=== PATIENT | female | born 1995 | race African-American/Black ===

== ENCOUNTER 2024-10-28 21:49 | Emergency (ER) | payer SELFPAY ==
[~2024-10-28] VITALS: Ht 167.6 cm; Wt 91.0 kg
[2024-10-28 21:55] VITALS: O2SAT 99
[2024-10-28 23:01] LABS: CLARITY URINE CLEAR (CLEAR); COLOR URINE YELLOW (YELLOW); GLUCOSE URINE NEGATIVE (NEGATIVE); KETONES URINE TRACE (NEGATIVE); LEUKOCYTE ESTERASE URINE NEGATIVE (NEGATIVE); NITRITE URINE NEGATIVE (NEGATIVE); OCCULT BLOOD URINE TRACE (NEGATIVE); PROTEIN URINE NEGATIVE (NEGATIVE); SPECIFIC GRAVITY URINE 1.009 (1.005-1.030)
[2024-10-28 23:45] LABS: BACTERIA URINE TRACE; RBC URINE 0-2 /hpf (0-2); SQUAMOUS EPITHELIAL CELL URINE FEW /lpf (RARE/1+); WBC URINE 0-2 /hpf (0-2)
[2024-10-28 23:58] LABS: CHLORIDE 105 mEq/L (98-107); POTASSIUM 3.6 mEq/L (3.5-5.1); SODIUM 140 mEq/L (136-145)
[2024-10-28 23:59] LABS: CARBON DIOXIDE 28 mEq/L (21-32)
[2024-10-29] LABS: CALCIUM 9.1 mg/dL (8.7-10.4)
[2024-10-29 00:02] LABS: HCG SCREEN NEGATIVE
[2024-10-29 00:04] LABS: CREATININE 0.9 mg/dL (0.6-1.0); GLUCOSE 97 mg/dL (70-105)
[2024-10-29 00:05] LABS: UREA NITROGEN BLOOD 7 mg/dL (9-23)
[2024-10-29 00:12] LABS: BASOPHILS % 0.3 % (0.0-2.0); EOSINOPHILS % 0.2 % (0.0-5.0); HEMATOCRIT. 37.1 % (36.0-48.0); HEMOGLOBIN. 12.4 g/dL (12.0-16.0); LYMPHOCYTES % 33.7 % (20.0-50.0); MEAN CORPUSCULAR HEMOGLOBIN 28.7 pg (28.0-32.0); MEAN CORPUSCULAR HGB CONC 33.6 g/dL (31.0-37.0); MEAN CORPUSCULAR VOLUME 85.5 fL (81.0-99.0); MEAN PLATELET VOLUME 8.5 fl (7.4-10.4); MONOCYTES % 7.7 % (2.0-8.0); NEUTROPHILS % 58.1 % (40.0-76.0); PLATELET 388 x1000/uL (130-400); RED BLOOD CELL COUNT 4.34 mill/uL (4.2-5.4); RED CELL DISTRIBUTION WIDTH 15.4 % (11.6-14.6); WHITE BLOOD COUNT 9.1 x1000/uL (4.5-11.0)
[2024-10-29] MEDS: ACETAMINOPHEN 325MG TABLET PO ONE (01:57)
[2024-10-29] MEDS: IBUPROFEN 400MG TABLET PO ONE (01:58)
[2024-10-29 02:00] VITALS: BP 106/59; PULSE 71; RESP 19; TEMP 37; O2SAT 99
== END 2024-10-29 02:03 | disposition home or self-care (01) ==
LOC: ER 21:49
DX: T46.7X5A Adverse effect of peripheral vasodilators, initial encounter (principal); Y92.89 Other specified places as the place of occurrence of the external cause
CPT/HCPCS: 36415; 74176; 80048; 81003; 81025; 83735; 84703; 85025; 87804; 99284